=== PATIENT | female | born 2000 | race Caucasian/White ===

== ENCOUNTER 2023-08-20 10:19 | Emergency (ER) | payer SELFPAY ==
[~2023-08-20] VITALS: Ht 160 cm; Wt 45.9 kg
[2023-08-20 10:43] VITALS: BP 118/73; PULSE 79; RESP 19; TEMP 99.1; O2SAT 100
[2023-08-20 12:38] VITALS: BP 120/72; PULSE 72; RESP 20; TEMP 99; O2SAT 100
[2023-08-20] MEDS ORDERED: IBUP-1842 PO (12:40)
[2023-08-20] MEDS ORDERED: OFLO5SOL27 LEFT EAR (12:40)
== END 2023-08-20 13:07 | disposition home or self-care (01) ==
LOC: MED 10:19
DX: H92.02 Otalgia, left ear (principal); Z79.899 Other long term (current) drug therapy
CPT/HCPCS: 99282; 99283